=== PATIENT | male | born 1955 | race Caucasian/White ===

== ENCOUNTER → 2023-08-29 | Outpatient (CLI) | payer MEDICARE, SELFPAY ==
--- NOTE | 2023-08-29 07:34 | MRI_ITS ---
STUDY: MRI LEFT SHOULDER REASON FOR EXAM: Male, 68 years old. Rule out cuff tear, weakness and age. TECHNIQUE: Standardized fat and water weighted pulse sequences were obtained in all 3 orthogonal planes. COMPARISON: None. FINDINGS: There is supraspinatus tendinosis without a full-thickness tear. Normal infraspinatus tendon. Normal subscapularis tendon. Normal teres minor tendon. Normal supraspinatus muscle. Normal infraspinatus muscle. Normal subscapularis muscle. Normal teres minor muscle. Normal glenohumeral articulation. There is enthesopathic subcortical edema/cyst formation of the greater tuberosity of the humeral head. Normal biceps labral complex. Normal intracapsular long biceps tendon. Normal labrum. Normal capsulo-ligamentous complex. Normal rotator interval. There is mild hypertrophic acromioclavicular arthrosis, with inferior osteophyte formation, with mild effacement of the supraspinatus myotendinous junction (coronal T2 series 8 image 12). There is a Type II morphology (curved), with a neutral orientation. There is trace subacromial-subdeltoid bursal fluid. Normal visualized coracohumeral and coracoacromial ligaments. Normal quadrilateral space. Normal axillary space. Normal deltoid muscle. Normal trapezius muscle. MRI/Upper Ext Joint Only(Routine) IMPRESSION: Supraspinatus tendinosis without a full-thickness rotator cuff tear. Mild hypertrophic acromioclavicular arthrosis, with inferior osteophyte formation, with mild effacement of the supraspinatus myotendinous junction. Minimal subacromial-subdeltoid bursitis. Electronically Signed: Yoni Ryan MD at 8:49 EST ,
--- OUTSIDE RECORDS SUMMARY | 2023-08-29 16:01 | XMS RPT_ITS | CCD ---
Author Name Unknown Address [address] [place] [address] Organization [facility] Care Team Providers Care Hotel Reservation Agent Name Role Phone Toño Fink MD Primary Care Provider TOÑO FINK Primary Care Unavailable Lima INIGUEZ Attending Unavailable TOÑO FINK Primary Care Unavailable TOÑO FINK Primary Care Unavailable Allergies Allergy Classification Reported Allergen(s) Allergy Type Date of Onset Reaction(s) Facility (4 sources) Acetaminophen / HYDROcodone; Translations: [HYDROCODONE-ACETA MINOPHEN] Drug Allergy 04-27-2012 GI Upset [facility] Work Phone: Medications Completed/Discontinued Medications Medication Drug Class(es) Dates Sig (Normalized) Sig (Original) atorvastatin 20 mg oral tablet (4 sources) HMG-CoA Reductase Inhibitor Start: 10-10-2021 End: 09-30-2022 take 1 tablet by mouth once daily at bedtime for hyperlipidemia atorvastatin (LIPITOR) 20 mg tablet Take 1 tablet by mouth daily at bedtime. For cholesterol. 90 tablet 3 09/30/2022 Active Problems Problem Classification Problem Date Documented Da te Episodic/Chronic Anxiety disorders (2 sources) Generalized anxiety disorder; Translations: [Generalized anxiety disorder] Onset: 10-01-2022 Chronic Disorders of lipid metabolism (5 sources) Hyperlipidemia; Translations: [Hyperlipidemia, unspecified] Onset: 09-28-2021 09-28-2021 Chronic Hyperplasia of prostate (5 sources) Benign prostatic hypertrophy without outflow obstruction; Translations: [Benign prostatic hyperplasia without lower urinary tract symptoms] Onset: 02-21-2009 09-28-2021 Chronic Immunizations and screening for infectious disease (1 source) Vaccination needed; Translations: [Encounter for immunization] Episodic Malaise and fatigue (2 sources) Fatigue; Translations: [Other fatigue] Onset: 10-01-2022 Episodic Other screening for suspected conditions (not mental disorders or infectious disease) (4 sources) Patient encounter status; Translations: [Encounter for screening for malignant neoplasm of colon] Onset: 03-03-2009 03-03-2009 Episodic Other upper respiratory infections (1 source) Sore throat symptom; Translations: [Acute pharyngitis, unspecified] Episodic Results Test Name Value Interpretation Reference Range Facil ity Vital Signs Date Time Vital Sign Value Performing Clinician Brock mueller 09-30-2022 08:49-0500 Body height 175 cm NA Iniguez PA-C Work Phone: [facility] 09-30-2022 08:49-0500 Body weight 69.4 kg NA Iniguez PA-C Work Phone: [facility] 09-30-2022 08:49-0500 Diastolic blood pressure 64 mm[Hg] NA Iniguez PA-C Work Phone: [facility] 09-30-2022 08:49-0500 Heart rate 56 /min NA Iniguez PA-C Work Phone: [facility] 09-30-2022 08:49-0500 Respiratory rate 14 /min NA Iniguez PA-C Work Phone: [facility] 09-30-2022 08:49-0500 SaO2% (BldA) [Mass fraction] 96 % NA Iniguez PA-C Work Phone: [facility] 09-30-2022 08:49-0500 Systolic blood pressure 128 mm[Hg] NA Iniguez PA-C Work Phone: [facility] 09-20-2022 11:23-0500 Body temperature 97.81 [degF] Neeta Bogner PA-C Work Phone: [facility] 09-20-2022 11:23-0500 Body weight 71.67 kg Neeta Bogner PA-C Work Phone: [facility] 09-20-2022 11:23-0500 Diastolic blood pressure 68 mm[Hg] Neeta Bogner PA-C Work Phone: [facility] 09-20-2022 11:23-0500 Heart rate 76 /min Neeta Bogner PA-C Work Phone: [facility] 09-20-2022 11:23-0500 Respiratory rate 16 /min Neeta Bogner PA-C Work Phone: [facility] 09-20-2022 11:23-0500 SaO2% (BldA) [Mass fraction] 99 % Neeta Bogner PA-C Work Phone: [facility] 09-20-2022 11:23-0500 Systolic blood pressure 122 mm[Hg] Neeta Bogner PA-C Work Phone: [facility] Encounters Encounter Date Encounter Type Care Provider Facility Start: 10-01-2022 End: 10-02-2022 ambulatory TOÑO FINK Facility:[facility] Start: 09-30-2022 End: 09-30-2022 ambulatory Lima OCHOASAM INIGUEZ Facility:[facility] Start: 09-30-2022 End: 09-30-2022 Patient encounter procedure Lima Sam CORTES-C Work Phone: [facility] Procedures Date Procedure Procedure Detail Performing Clinician Start: 09-20-2022 STREP A MOLECULAR (POC) Kiki Skinner APRN.CNP Work Phone: Start: 09-28-2021 Adult depression scr eening assessment NA Iniguez PA-C Work Phone: Start: 03-17-2009 Colonoscopy NA Iniguez PA-C Work Phone: Plan of Treatment Date Care Activity Detail Author Start: 09-30-2026 LIPID SCREEN LIPID SCREEN [facility] Start: 09-30-2026 PROSTATE CANCER SCRE ENING DISCUSSION PROSTATE CANCER SCREENING DISCUSSION [facility] Start: 09-30-2024 DIABETES SCREEN DIABETES SCREEN [facility] Start: 10-01-2023 COVID-19 VACCINE (3 - Booster for Niraj series) COVID-19 VACCINE (3 - Booster for Niraj series) [facility] Immunizations Immunization Date Immunization Notes Care Provider Rocio diego 09-30-2022 pneumococcal (PCV20) vaccine, 20 valent (PREVNAR 20) NA Iniguez PA-C Work Phone: [facility] 09-30-2022 zoster vaccine recombinant NA Iniguez PA-C Work Phone: [facility] 09-30-2022 pneumococcal Conjuga te, unspecified formulation NA Iniguez PA-C Work Phone: [facility] Work Phone: 07-09-2022 Seasonal, quadrivale nt, recombinant, injectable influenza vaccine, preservative free NA Iniguez PA-C Work Phone: [facility] 09-28-2021 pneumococcal polysaccharide vaccine, 23 valent NA Iniguez PA-C Work Phone: [facility] 04-14-2021 influenza, high-dose , quadrivalent vaccine (FLUZONE HIGH DOSE QUADRIVALENT) NA Iniguez PA-C Work Phone: [facility] 04-04-2020 influenza, injectabl e, quadrivalent, preservative free NA Iniguez PA-C Work Phone: [facility] 04-09-2019 Influenza, injectabl e, Madin Aileen Canine Kidney, preservative free, quadrivalent NA Iniguez PA-C Work Phone: [facility] 04-15-2018 influenza, seasonal, injectable, preservative free NA Iniguez PA-C Work Phone: [facility] 04-06-2017 influenza, injectabl e, quadrivalent, contains preservative NA Iniguez PA-C Work Phone: [facility] 04-17-2016 influenza, injectabl e, quadrivalent, contains preservative NA Iniguez PA-C Work Phone: [facility] 04-24-2015 influenza, injectabl e, quadrivalent, contains preservative NA Iniguez PA-C Work Phone: [facility] 05-01-2014 influenza, seasonal, injectable NA Iniguez PA-C Work Phone: [facility] 05-16-2013 influenza virus vacc ine, unspecified formulation NA Iniguez PA-C Work Phone: [facility] 04-15-2012 influenza virus vacc ine, unspecified formulation NA Iniguez PA-C Work Phone: [facility] Work Phone: 05-09-2010 influenza virus vacc ine, unspecified formulation NA Iniguez PA-C Work Phone: [facility] Work Phone: Payers Date Payer Category Payer Medicare [id number] 2021 Unknown MMO MMO MEDICARE SUPPLEMENT [id number] 2021-Present [phone] [address] [place] [address] Indemnity [id number] 2021 Unknown MMO MMO MEDICARE SUPPLEMENT [id number] 2021-Present [phone] [address] [place] [address] Indemnity [id number] 2021 Medicare MEDICARE MEDICAR E A AND B [id number] 2021-Present [phone] [address] [address] [place] [address] Medicare [id number] 2021 Medicare MEDICARE MEDICAR E A AND B [id number] 2021-Present [phone] [place] [address] Medicare [id number] 2021 Medicare [id number] Social History Date Type Detail Facility Start: [facility]22 [facility] End: 05-06-1996 History of tobacco use Current smoker [facility] Start: 09-28-2021 End: 09-30-2022 Alcohol intake Current drinker of alcohol (finding) [facility] Start: 02-21-2009 History SDOH Alcohol Comment weekly, 4-6 total per week [facility] Start: 1955 Sex Assigned At Not on file [facility] Start: 08-31-2021 End: 09-30-2021 Exposure to SARS-CoV-2 (event) Not sure [facility] End: 05-06-1996 History of tobacco use Cigarette Smoker [facility] Work Phone: Start: 09-20-2022 Tobacco use and exposure Smoke less tobacco non-user [facility] Work Phone: Start: 09-30-2022 History SDOH Alcohol Frequency 4 [facility] Start: 09-30-2022 History SDOH Alcohol Std Drinks 1 [facility] Start: 09-30-2022 History SDOH Social Connections Phone 5 [facility] Start: 09-30-2022 History SDOH Social Connections Get Together 3 [facility] Start: 09-30-2022 History SDOH Physica l Activity DPW 0 [facility] Start: 09-30-2022 History SDOH Stress 2 [facility] Progress note 09-30-2022 Note Date & Type Note Facility 09-30-2022 Note HNO ID: [id number] Author: Lima Iniguez PA-C Service: ? Author Type: Physician Door To Door Salesman Type: Progress Notes Filed: 09/30/2022 12:40 PM Note Text: Delroy Stein is a 67 year old male here for a Medicare Subsequent Annual Wellness Visit Health Risk Assessment In general, health is: Good Concerns with balance: Not at all Concerns with teeth or dentures: Not at all Concerns with sexual function:Several days Saw urology: discussed high frequency US. Didn't get any improvement with PDIs [place] anxious, stressed, angry, irritable, lonely, isolated, or had thoughts of hurting themself: Not at all Has little interest or pleasure in doing things: Not at all Bothered by feeling down, depressed, or hopeless: Not at all Needs help with grocery shopping, cooking, housework, bathing, grooming, dressing, eating, sitting or standing, walking, using the toilet, handling finances, taking medications, using the telephone, or driving: No Following safety precautions in the home environment and vehicle: removed throw rugs from floors, installed grab bars in the bathroom, handrails in stairwells, having adequate lighting, wearing seatbelt at all times?: Yes Smokes cigarettes, vapes, or chew tobacco: No Eats healthy foods including fruits, vegetables, whole grains, and fiber-rich foods: More than half the days Number of days per week engages in exercise: 0 days Average alcohol consumption: 2-3 times a week Current Providers Specialists: I have reviewed specialist-related care of the patient in the medical record. Medical/Family history review Reviewed and updated problem list, medical/surgical/family/social history, medications, and allergies. Opioid use review Patient is not currently using opioids. Depression screening Depression Screening PHQ-2 Score PHQ-9 Score HUSSAIN-2 Total Score HUSSAIN-7 Total Score 09/30/2022 0 - - - Depression screening tool completed and reviewed. Based on score and interview, patient is not at risk for depression. Screening tool discussed with patient, and I recommended no further intervention at this time. Cognitive screening Mini Cog Score: 5 Cognitive screening reviewed and no further action needed (score 3-5) Functional Observation Was the patient's timed Up AND Go test unsteady or ? 12 seconds? No Advance Care Planning End of Life planning discussed, including patient's advanced directive wishes: Yes Measurements BP 128/64 Pulse 56 Resp 14 Ht 5' 8.898 (1.75m) Wt 153 lb (69.4kg) SpO2 96% BMI 22.66 kg/(m2). Visual acuity (required for Welcome to Medicare): follows with optometry/ophthalmology Hearing Evaluation: within normal limits Assessment/Plan - Counseled on healthy diet and regular exercise - Fall avoidance ----- Additional concerns discussed: None specific. Needs new order for colonoscopy Hyperlipidemia: Current medication Atorvastatin 20mg daily HS- didn't ask for refill, thought medication was finished. Taking medication consistently No Observing low cholesterol high fiber diet Yes Muscle aches No Stomach complaints/ diarrhea No Last 2 Lipids: Component Latest Ref Rng AND Units 08/04/2018 09/30/2021 Cholesterol, Total <200 mg/dL 197 192 Triglyceride <150 mg/dL 87 66 HDL Cholesterol >39 mg/dL 56 51 LDL Cholesterol <100 mg/dL 124 (H) 128 (H) Non HDL Cholesterol <130 mg/dL 141 (H) 141 (H) Fasting Time hrs 14 13 VLDL Cholesterol <30 mg/dL 17 13 TC:HDL Ratio <5.10 3.52 3.76 LDL:HDL Ratio <2.54 2.21 2.51 BPH with LUTS Tries to drink a lot of water Force of Stream: moderate reduction . Hesitancy: No Intermittency: No Dribbling: a little Daytime Frequency: 2-4 hours Night time frequency: 1-2 times per night Urgency: None Incontinence: None No interested in treatment currently. Changes in ETOH and night time fluid intake has helped. HISTORIES FAMILY HISTORY Problem Relation Age of Onset Ischemic Heart Disease Father first at age 65 Diabetes Paternal Grandmother PAST MEDICAL HISTORY Diagnosis Date NEGATIVE MEDICAL HISTORY PAST SURGICAL HISTORY Procedure Laterality Date COLONOSCOPY FLX DX W/COLLJ SPEC WHEN PFRMD Normal VASECTOMY UNI/BI SPX W/POSTOP SEMEN EXAMS 1995 Social History Tobacco Use Smoking status: Former Types: Cigarettes Quit date: 05/06/1996 Years since quittin.4 Smokeless tobacco: Never Substance Use Topics Alcohol use: Yes Comment: weekly, 4-6 total per week Drug use: No ACTIVE PROBLEM LIST Bph Without Urinary Obstruction Special Screening for Malignant Neoplasms, Colon Hyperlipidemia Ldl Goal <100 Current Outpatient Medications Medication Sig Dispense Refill atorvastatin (LIPITOR) 20 mg tablet Take 1 tablet by mouth daily at bedtime. For cholesterol. (Patient not taking: Reported on 09/20/2022) 90 tablet 1 No current facility-administered medications for this visit. ABDOMINAL (more content not included)... [facility] Instructions 09-30-2022 Patient Instructions Note Date & Type Note Facility 09-30-2022 Instructions Lima Iniguez PA-C - 09/30/2022 9:53 AM EST Screening schedule The following prevention plan is recommended: ABDOMINAL AORTIC ANEURYSM SCREENING Never done SHINGRIX VACCINE(1 of 2) Never done COLORECTAL CANCER SCREENING due on 09/29/2021 ADVANCE DIRECTIVE DISCUSSION Never done DEPRESSION ASSESSMENT Never done PNEUMOCOCCAL: 66+(2 - PCV) due on 09/28/2022 WHAT YOU CAN DO TO PREVENT FALLS Many falls can be prevented. By making some changes, you can lower your chances of falling. Four things YOU can do to prevent falls for you* and your caregiver 1. Begin a regular exercise program Exercise is one of the most important ways to lower your chances of falling. It makes you stronger and helps you feel better. Exercises that improve balance and coordination (like Siva Chi) are the most helpful. Lack of exercise leads to weakness and increases your chances of falling. Ask your doctor or health care provider about the best type of exercise program for you. 2. Have your health care provider review your medicines Have your doctor or pharmacist review all the medicines you take, even [id number] medicines. As you get older, the way medicines work in your body can change. Some medicines, or combinations of medicines, can make you sleepy or dizzy and can cause you to fall. 3. Have your vision checked Have your eyes checked by an eye doctor at least once a year. You may be wearing the wrong glasses or have a condition like glaucoma or cataracts that limits your vision. Poor vision can increase your chances of falling. 4. Make your home safer About half of all falls happen at home. To make your home safer: Remove things you can trip over (like papers, books, clothes, and shoes) from stairs and places where you walk. Remove small throw rugs or use double-sided tape to keep the rugs from slipping. Keep items you use often in cabinets you can reach easily without using a step stool. Have grab bars put in next to your toilet and in the tub or shower. Use non-slip mats in the bathtub and on shower floors. Improve the lighting in your home. As you get older, you need brighter lights to see well. Hang light-weight curtains or shades to reduce glare. Have handrails and lights put in on all staircases. Wear shoes both inside and outside the house. Avoid going barefoot or wearing slippers. For more information, contact: Centers for Disease Control and Prevention www.cdc.gov/injury * This information may not apply if you have certain medical conditions. documented in this encounter [facility] Nurse Note 09-30-2022 Sadie Kelly Ma - 09/30/2022 9:01 AM EST Note Date & Type Note Facility 09-30-2022 Nurse Note VISUAL ACUITY: Today's exam: Vision Correction? Glasses: RIGHT EYE: 20/30 LEFT EYE: 20/25 BOTH EYES: 20/25 documented in this encounter [facility] History of Present illness Narrative 09-30-2022 Lima Iniguez PA-C - 09/30/2022 9:00 AM EST Note Date & Type Note Facility 09-30-2022 History of Presen t illness Narrative Delroy Stein is a 67 year old male here for a Medicare Subsequent Annual Wellness Visit Health Risk Assessment In general, health is: Good Concerns with balance: Not at all Concerns with teeth or dentures: Not at all Concerns with sexual function:Several days Saw urology: discussed high frequency US. Didn't get any improvement with PDIs [place] anxious, stressed, angry, irritable, lonely, isolated, or had thoughts of hurting themself: Not at all Has little interest or pleasure in doing things: Not at all Bothered by feeling down, depressed, or hopeless: Not at all Needs help with grocery shopping, cooking, housework, bathing, grooming, dressing, eating, sitting or standing, walking, using the toilet, handling finances, taking medications, using the telephone, or driving: No Following safety precautions in the home environment and vehicle: removed throw rugs from floors, installed grab bars in the bathroom, handrails in stairwells, having adequate lighting, wearing seatbelt at all times?: Yes Smokes cigarettes, vapes, or chew tobacco: No Eats healthy foods including fruits, vegetables, whole grains, and fiber-rich foods: More than half the days Number of days per week engages in exercise: 0 days Average alcohol consumption: 2-3 times a week Current Providers Specialists: I have reviewed specialist-related care of the patient in the medical record. Medical/Family history review Reviewed and updated problem list, medical/surgical/family/social history, medications, and allergies. Opioid use review Patient is not currently using opioids. Depression screening Depression Screening PHQ-2 Score PHQ-9 Score HUSSAIN-2 Total Score HUSSAIN-7 Total Score 09/30/2022 0 - - - Depression screening tool completed and reviewed. Based on score and interview, patient is not at risk for depression. Screening tool discussed with patient, and I recommended no further intervention at this time. Cognitive screening Mini Cog Score: 5 Cognitive screening reviewed and no further action needed (score 3-5) Functional Observation Was the patient's timed Up & Go test unsteady or ? 12 seconds? No Advance Care Planning End of Life planning discussed, including patient's advanced directive wishes: Yes Measurements BP 128/64 Pulse 56 Resp 14 Ht 5' 8.898 (1.75m) Wt 153 lb (69.4kg) SpO2 96% BMI 22.66 kg/(m^2). Visual acuity (required for Welcome to Medicare): follows with optometry/ophthalmology Hearing Evaluation: within normal limits Assessment/Plan - Counseled on healthy diet and regular exercise - Fall avoidance --------- Additional concerns discussed: None specific. Needs new order for colonoscopy Hyperlipidemia: Current medication Atorvastatin 20mg daily HS- didn't ask for refill, thought medication was finished. Taking medication consistently No Observing low cholesterol high fiber diet Yes Muscle aches No Stomach complaints/ diarrhea No Last 2 Lipids: Component Latest Ref Rng & Units 08/04/2018 09/30/2021 Cholesterol, Total <200 mg/dL 197 192 Triglyceride <150 mg/dL 87 66 HDL Cholesterol >39 mg/dL 56 51 LDL Cholesterol <100 mg/dL 124 (H) 128 (H) Non HDL Cholesterol <130 mg/dL 141 (H) 141 (H) Fasting Time hrs 14 13 VLDL Cholesterol <30 mg/dL 17 13 TC:HDL Ratio <5.10 3.52 3.76 LDL:HDL Ratio <2.54 2.21 2.51 BPH with LUTS Tries to drink a lot of water Force of Stream: moderate reduction . Hesitancy: No Intermittency: No Dribbling: a little Daytime Frequency: 2-4 hours Night time frequency: 1-2 times per night Urgency: None Incontinence: None No interested in treatment currently. Changes in ETOH and night time fluid intake has helped. HISTORIES FAMILY HISTORY Problem Relation Age of Onset Ischemic Heart Disease Father first at age 65 Diabetes Paternal Grandmother PAST MEDICAL HISTORY Diagnosis Date NEGATIVE MEDICAL HISTORY PAST SURGICAL HISTORY Procedure Laterality Date COLONOSCOPY FLX DX W/COLLJ SPEC WHEN PFRMD Normal VASECTOMY UNI/BI SPX W/POSTOP SEMEN EXAMS 1995 Social History Tobacco Use Smoking status: Former Types: Cigarettes Quit date: 05/06/1996 Years since quittin.4 Smokeless tobacco: Never Substance Use Topics Alcohol use: Yes Comment: weekly, 4-6 total per week Drug use: No ACTIVE PROBLEM LIST Bph Without Urinary Obstruction Special Screening for Malignant Neoplasms, Colon Hyperlipidemia Ldl Goal <100 Current Outpatient Medications Medication Sig Dispense Refill atorvastatin (LIPITOR) 20 mg tablet Take 1 tablet by mouth daily at bedtime. For cholesterol. (Patient not taking: Reported on 09/20/2022) 90 tablet 1 No current facility-administered medications for this visit. ABDOMINAL AORTIC ANEURYSM SCREENING Never done DTAP,TDAP,TD(1 - Tdap) Never done SHINGRIX VACCINE(1 of 2) Never done COVID-19 VACCINE(3 - Booster for Niraj series) due on 07/29/2021 COLORECTAL CANCER SCREENING due on 09/29/2021 ADVANCE DIRECTIVE DISCUSSION Never done DEPRESSION ASSESSMENT Never done PNEUMOCOCCAL: 65+(2 - PCV) due on 09/28/2022 REVIEW OF SYMPTOMS: updated General: denies fatigue, unusual weight loss or gain, fevers, chills. Energy Level: feels low on occasion. Overall good. 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 Sleep: hours: 6-7, interrupted x 1 by dog Diet: eats regularly. Any routine health measures: variety of food, cereals. Vegetables, meat. Tobacco use: none. Caffeine use: 3-4 cups a day. ETOH use: 1-2 three times a week, bourbon. Marijuana use: none. Illicit drug use: none. Eyes: denies change in vision, glaucoma. Early cataracts. Wears glasses/contacts. Last eye exam: June. Bifocals. EENT: denies recurrent sinus infection, unusual nasal drainage, hoarsemess, sore throat, or recurrent sore in mouth or tongue. Cardiovascular: denies chest pain , SOB, palpitation, irregular or racing heart beats, orthopnea, leg swelling, history of rheumatic fever or prior heart conditions Respiratory: denies unusual cough, SOB, wheezing, history of recurrent bronchitis, pneumonia or tuberculosis. Denies day time drowsiness. Occasionally snores per . No witnessed sleep apnea. GI: denies difficulty swallowing, nausea, vomiting, change in appetite. No change in bowel habits. Denies constipation, diarrhea, rectal bleeding or hemorrhoids, incontinence. No history of GERD, PUD, jaundice/hepatitis, GB disease, diverticulosis, colorectal cancer, hernias. Kidney/Bladder: Denies frequency, burning. Nocturia 0-1, incontinence none. No satisfactory erections with PDIs or testosterone therapy. Was recommended to try pump but declined. No history of kidney stones, recurrent UTI or kidney infection. Skin: denies unusual rashes. No history of skin cancer, bleeding/changing moles, or unusual skin lesions. Neurologic: Denies recurrent ANDERSEN, change in vision, hearing or smell, tremors, unusual weakness, loss of sensation, or difficulty with balance or gait. No history of epilepsy/convulsions, migraine, head/spinal injuries, or stroke/TIA. Psychiatric: Denies unusual worry, moodiness, depression, suicidal ideation or unusual disturbance in relationships. No history of psychiatric illness. Endocrine: denies unusual thirst, hunger, excessive urination, change in skin or hair texture, emotional lability. No history of thryoid, pituitary or hormonal problems. Hematologic: denies unusual bleeding, bruising, or history of anemia or blood transfusion. Denies hx blood clots. Infections: denies risk factors for HIV, hepatitis or history of unusual infection. Immunizations are up to date. Musculoskeletal: denies unusual stiffness, muscles aches, joint pain, or swelling. Denies recurrent sprain or disruption of joints, debilitating arthritis, gout, or other musculoskeletal disease. No hx back injury, spinal stenosis, radiculopathy. EXAM: BP 128/64 Pulse (!) 56 Resp 14 Ht 175 cm (5' 8.9 ) Wt 69.4 kg (153 lb) SpO2 96% BMI 22.66 kg/m Pleasant, well appearing lean man in no acute distress. Alert and oriented all spheres. Normal cognition. Euthymic, affect congruent. Speech normal. No deficits to learning or comprehension. Skin warm, dry, pink to lips and nailbeds. Normal turgor. No significant lesions. Scar from excision right lower back/flank. Mild actinic damage. Respirations regular and unlabored. HEENT: NCAT. No scleral icterus or conjunctival injection. TM's clear. Nose and oropharynx free from injection or lesion. Oral membranes moist and pink. No cervical lymph nodes. Thyroid non-tender, no masses, or enlargement. Carotids pulses 2+/4+ without bruits. Neck supple, FROM. Chest is normal shape. Lungs are clear to all hinson with good air exchange through out. HRRR without murmur or gallop. Back with normal lordotic curve, no midline tenderness. Abdomen: active bowel sounds throughout, soft, nontender, no masses or organomegaly. No CVAT. Femoral pulses 2/4+ without bruit. Extrem: no clubbing or cyanosis. Edema: none. Extremities are warm and pink with prompt capillary refill. Normal nails and hair distribution. Normal arch. ASSESSMENT/PLAN: 1. Medicare annual wellness visit, subsequent - ICD9: V70.0, ICD10: Z00.00 (primary diagnosis) - Counseled on healthy diet and regular exercise - Depression screening tool completed and reviewed with patient. Based on score and interview, patient is not at risk for depression and recommended no further intervention at this time. - Follow up for annual exam in one year 2. Hyperlipidemia LDL goal <100 - ICD9: 272.4, ICD10: E78.5 - good control when on medicaton: resume - Continue current medication. - Encouraged following a low fat, low cholesterol diet. 3. BPH without urinary obstruction - ICD9: 600.00, ICD10: N40.0 Mild sx, not bothersome 4. HUSSAIN (generalized anxiety disorder) - ICD9: 300.02, ICD10: F41.1 Stable, Practicing mindfulness which has helped considerably 5. Fatigue, unspecified type - ICD9: 780.79, ICD10: R53.83 Has improved. Doing projects, staying busy. documented in this encounter [facility] Progress note 09-20-2022 Note Date & Type Note Facility 09-20-2022 Note HNO ID: [id number] Author: Neeta Garcia PA-C Service: ? Author Type: Physician [employer] To [employer] Type: Progress Notes Filed: 09/20/2022 1:23 PM Note Text: 09/20/2022 Patient presents with: Nasal Congestion: drainage, sore throat, sinus and headache x 1 week SUBJECTIVE: This is a 67 year old that is here today for Complaint(s) of sore throat x 11 days. + associated nasal congestion and drainage. + ANDERSEN, intermittent. Also mentions occasional cough. Denies fever, SOB, wheezing, vomiting, diarrhea, chest pain, abdominal pain. Sore throat is persisting. No difficulty swallowing. Normal fluid intake and appetite. PAST MEDICAL HISTORY Diagnosis Date NEGATIVE MEDICAL HISTORY ALLERGIES Hydrocodone-Acetaminophen MEDICATIONS Current Outpatient Medications Medication Sig atorvastatin (LIPITOR) 20 mg tablet Take 1 tablet by mouth daily at bedtime. For cholesterol. (Patient not taking: Reported on 09/20/2022) No current facility-administered medications for this visit. SOCIAL HISTORY Social History Tobacco Use Smoking status: Former Types: Cigarettes Quit date: 05/06/1996 Years since quittin.3 Smokeless tobacco: Never Substance Use Topics Alcohol use: Yes Comment: weekly, 4-6 total per week Drug use: No REVIEW OF SYSTEMS See HPI OBJECTIVE: BP 122/68 Pulse 76 Temp 36.6 ?C (97.8 ?F) Resp 16 Wt 71.7 kg (158 lb) SpO2 99% BMI 23.40 kg/m? APPEARANCE Well appearing, alert, in no acute distress, well-hydrated, well nourished. EYES PERRLA, conjunctiva and sclera normal. EARS External ears normal, canals clear. TMs normal MARIAH NOSE/SINUS Nares normal. Septum midline. Mucosa normal. No drainage or sinus tenderness. THROAT normal, + erythema posterior oropharynx. No exudate. Uvula midline NECK Supple, small MARIAH anterior cervical adenopathy HEART RRR with normal S1 and S2, LUNG clear to auscultation, No wheezing, rhonchi, rales. ASSESSMENT/PLAN: 1. Sore throat - ICD9: 462, ICD10: J02.9 - Alere Strep Test negative, no culture pending - Discussed supportive care treatment with fluids, rest and analgesia. - The patient may also use OTC decongestants prn, OTC cough and cold meds as needed, warm salt water gargles, throat lozenges and/or OTC throat spray as needed, and nasal saline gtts and suction prn. - The patient should follow up in 3-5 days if symptoms persist or worsen - Call back if drooling, increased temperature, symptoms of dehydration and/or still sick in one week - STREP A MOLECULAR (POC) - 2019 CORONAVIRUS If COVID negative and sore throat persisting-recommend f/u in 3-5 days to reevaluated. The patient indicates understanding of these issues and agrees with the plan. Reviewed red flags and when to seek care sooner. Neeta Garcia PA-C 09/20/2022 [facility] History of Present illness Narrative 09-20-2022 Neeta Garcia PA-C - 09/20/2022 11:28 AM EST Note Date & Type Note Facility 09-20-2022 History of Presen t illness Narrative 09/20/2022 Patient presents with: Nasal Congestion: drainage, sore throat, sinus and headache x 1 week SUBJECTIVE: This is a 67 year old that is here today for Complaint(s) of sore throat x 11 days. + associated nasal congestion and drainage. + ANDERSEN, intermittent. Also mentions occasional cough. Denies fever, SOB, wheezing, vomiting, diarrhea, chest pain, abdominal pain. Sore throat is persisting. No difficulty swallowing. Normal fluid intake and appetite. PAST MEDICAL HISTORY Diagnosis Date NEGATIVE MEDICAL HISTORY ALLERGIES Hydrocodone-Acetaminophen MEDICATIONS Current Outpatient Medications Medication Sig atorvastatin (LIPITOR) 20 mg tablet Take 1 tablet by mouth daily at bedtime. For cholesterol. (Patient not taking: Reported on 09/20/2022) No current facility-administered medications for this visit. SOCIAL HISTORY Social History Tobacco Use Smoking status: Former Types: Cigarettes Quit date: 05/06/1996 Years since quittin.3 Smokeless tobacco: Never Substance Use Topics Alcohol use: Yes Comment: weekly, 4-6 total per week Drug use: No REVIEW OF SYSTEMS See HPI OBJECTIVE: BP 122/68 Pulse 76 Temp 36.6 C (97.8 F) Resp 16 Wt 71.7 kg (158 lb) SpO2 99% BMI 23.40 kg/m APPEARANCE Well appearing, alert, in no acute distress, well-hydrated, well nourished. EYES PERRLA, conjunctiva and sclera normal. EARS External ears normal, canals clear. TMs normal MARIAH NOSE/SINUS Nares normal. Septum midline. Mucosa normal. No drainage or sinus tenderness. THROAT normal, + erythema posterior oropharynx. No exudate. Uvula midline NECK Supple, small MARIAH anterior cervical adenopathy HEART RRR with normal S1 and S2, LUNG clear to auscultation, No wheezing, rhonchi, rales. ASSESSMENT/PLAN: 1. Sore throat - ICD9: 462, ICD10: J02.9 - Alere Strep Test negative, no culture pending - Discussed supportive care treatment with fluids, rest and analgesia. - The patient may also use OTC decongestants prn, OTC cough and cold meds as needed, warm salt water gargles, throat lozenges and/or OTC throat spray as needed, and nasal saline gtts and suction prn. - The patient should follow up in 3-5 days if symptoms persist or worsen - Call back if drooling, increased temperature, symptoms of dehydration and/or still sick in one week - STREP A MOLECULAR (POC) - 2019 CORONAVIRUS If COVID negative and sore throat persisting-recommend f/u in 3-5 days to reevaluated. The patient indicates understanding of these issues and agrees with the plan. Reviewed red flags and when to seek care sooner. Neeta Garcia PA-C 09/20/2022 documented in this encounter [facility] Evaluation note Note Date & Type Note Facility documented in this encounter [facility] Evaluation note Note Date & Type Note Facility documented in this encounter [facility] Reason for Referral Specialty Diagnoses / Procedures Referred By Benigno lyles Referred To Contact General Surgery Diagnoses Screening for colon cancer Procedures CONSULT TO GENERAL SURGERY OFFICE/OUTPATIENT [facility] 60-74 MINUTES Lima Iniguez PA-C [address] [place] [address] Referral ID Status Reason Start Date Expiration Date Visits Requested Visits Authorized [id number] Authorized PCP Requested Referral 09/30/2022 09/30/2023 1 1 Summary Purpose Family History No Family History Records Found Advance Directives No Advanced Directives Records Found Additional Source Comments Source Comments (unrecognize d section and content) In the event this informatio n is protected by the Federal Confidentiality of Alcohol and Drug Abuse Patient Records regulations: The Federal rules restrict any use of the information to criminally investigate or prosecute any alcohol or drug abuse patient.[facility] the event this information is protected by the Federal Confidentiality of Alcohol and Drug Abuse Patient Records regulations: The Federal rules restrict any use of the information to criminally investigate or prosecute any alcohol or drug abuse patient.[facility] the event this information is protected by the Federal Confidentiality of Alcohol and Drug Abuse Patient Records regulations: The Federal rules restrict any use of the information to criminally investigate or prosecute any alcohol or drug abuse patient.[facility] Care Teams (unrecognized sec tion and content) Hotel Reservation Agent Relationship Specialty Start Date End Date Toño Fink MD [address] [place] [address] PCP - General Family Medicine 05/17/13 Hotel Reservation Agent Relationship Specialty Start Date End Date Toño Fink MD [address] [place] [address] PCP - General Family Medicine 05/17/13 Reason for Visit (unrecogniz ed section and content) Reason Comments Medicare Wellness Exam (unrecognized sect ion and content) No Status Records Found INFORMATION SOURCE (unrecogn ized section and content) FOR RECORDS PERTAINING TO PATIENTS WHO ARE OR HAVE BEEN ENROLLED IN A CHEMICAL DEPENDENCY/SUBSTANCEABUSE PROGRAM, SOME INFORMATION MAY BE OMITTED. This clinical summary was aggregated from multiple sources. Caution should be exercised in using it in the provision of clinical care. This summary normalizes information from multiple sources, and as a consequence, information in this document may materially change the coding, format and clinical context of patient data. In addition, data may be omitted in some cases. CLINICAL DECISIONS SHOULD BE BASED ON THE PRIMARY CLINICAL RECORDS. [facility] [employer] [facility]. provides no warranty or guarantee of the accuracy or completeness of information in this document.
== END | disposition home or self-care (01) ==
LOC: MRI 14:13
PROVIDERS: PCP Nurse Practitioner Primary Care; Referring Provider Orthopaedic Surgery Sports Medicine; Visit Provider Orthopaedic Surgery Sports Medicine
DX: M25.512 Pain in left shoulder (principal)
CPT/HCPCS: 73221

== ENCOUNTER 2023-09-22 12:30 | Outpatient (RCR) | payer MEDICARE, SELFPAY ==
--- NOTE | 2023-09-07 08:15 | HP.PTEVAL ---
Patient's Visit Information Visit Information Visit Information: YOSELYN NGUYEN is a 68 year old M referred to Physical Therapy by Dr. Jerry Cardenas MD with a diagnosis of L shoulder pain. Date of Evaluation: 09/07/23 Physical Therapist: Luciano Gore, PT, ATC Visit Plan Frequency: 2x /Week Duration: 1-4 weeks Plan: Instruct pt on HEP of rot cuff strengthening and scap stab ex's Subjective Subjective: Pt reports he has had L shoulder pain for 18 months. Pt [place], and experiences pain when he is performing routine tasks. Pt reports often helping his to clean out horse stalls will provoke his pain. Pt is R hand dominant. Pt reports the pain is generalized throughout his L shoulder and extends to his L lateral humerus. Pt denies tingling or numbness at this time. Pt reports sleep difficulty at this time secondary to pain. Pt reports he had a recent MRI, and notes there are no tears present. He did mention the possibility of bursitis present at this time. Pt also notes he had some thickening of specific tendons on his MRI. Pt reports he is limited with all overhead activity secondary to pain. Pt also notes his shoulder is more sore if he reaches behind his back, or attempts to don his jacket. Pt reports L shoulder pain is 2/10 while sitting here in the clinic, but increases to 10/10 at worst Pain L shoulder: Pain Intensity (Out of 10): 2 Pain Intensity Range: 10 Objective Objective: Neuro: B UE sensation is WNL to light touch. Bicipital reflex= 2/3 Palpation: Pt is very sore along the distribution of the supraspinatus tendon. No deformity noted at this time. ROM: R shoulder flex= 130, abd= 120, ER= 10, IR= WNL; L shoulder flex= 100, abd= 90, ER= 0, IR= moderately limited MMT: R shoulder flex= 25, abd= 42, ER= 31, IR= 35 #F; L shoulder flex= 8, abd= 28, ER= 17, IR= 19 #F Special tests: Pos empty can Balance/Special Test Scores Quick DASH Score: 50.0000 Goals Goal 1:: Decrease L shoulder pain x 50% to aid with sleep Goal Time Frame: 4-6 Weeks Goal 2:: Increase L shoulder flex and abd ROM x 20 degrees to aid with overhead lifting Goal Time Frame: 4-6 Weeks Goal 3:: Increase L shoulder strength x 5-10 #F to aid with IADL's Goal Time Frame: 4-6 Weeks Goal 4:: I with HEP Goal Time Frame: 4-6 Weeks Rehabilitation Potential Physical Therapy Diagnosis: L shoulder pain, weakness, and limited ROM secondary to L shoulder impingement Rehabilitation Potential: Good Anticipated Interventions Patient/Client Instruction: Educate patient on: Condition and Plan of Care For the Purpose of:: To improve self management Therapeutic Exercise to Include: Strength training, Endurance training, Active ROM and Scapular Strength/Stabilization For the Purpose of:: To decrease pain, To increase ROM and To improve muscle performance and motor function Cryotherapy (ice pack, ice massage): Yes For the Purpose of:: To decrease pain Text: Thank you for the opportunity to evaluate your patient. For Medicare and Medicare HMO plans, please review the plan of care and approve it. It will need to be FAXED BACK to us at [phone] for Medicare purposes. For Medicare only, by signing this I certify the plan of care. Please let me know if there are questions or concerns regarding this plan of care. Physician Signature: Date:
== END 2023-09-22 19:00 | disposition home or self-care (01) ==
LOC: PT 12:30
PROVIDERS: PCP Nurse Practitioner Primary Care; Referring Provider Orthopaedic Surgery Sports Medicine; Visit Provider Orthopaedic Surgery Sports Medicine
DX: M25.512 Pain in left shoulder (principal); M25.812 Other specified joint disorders, left shoulder; M67.814 Other specified disorders of tendon, left shoulder; M19.012 Primary osteoarthritis, left shoulder
CPT/HCPCS: 97110; 97161